=== PATIENT | male | born 1935 | race Caucasian/White ===

== ENCOUNTER → 2017-03-02 | Outpatient (CLI) | payer MEDICARE, OTHER ==
[2017-03-02 12:23] LABS: Basophils # (auto) 0 uL; Basophils % (auto) 0.6 % (0.0-2.0); CONDITION Y; Eosinophils # (auto) 0.1 uL; Eosinophils % (auto) 3.3 % (0.0-7.0); Hematocrit 40.8 % (41.0-53.0); Hemoglobin 13.7 g/dL (13.5-17.5); Lymphocytes # (auto) 0.6 uL; Mean Corpuscular Hemoglobin 32.8 pg (28.0-32.0); Mean Corpuscular Hgb Conc. 33.5 g/dL (32.0-36.0); Mean Corpuscular Volume 97.8 fL (80.0-100.0); Mean Platelet Volume 8.3 fL (7.4-10.4); Monocytes # (auto) 0.5 uL; Monocytes % (auto) 12.4 % (0.0-12.0); Neutrophils # (auto) 2.7 uL; Neutrophils % (auto) 67.7 % (37.0-80.0); Platelet Count (auto) 391 10^3/uL (140-450); Red Cell Distribution Width 13.5 % (11.6-16.0); White Blood Cell 4.1 10^3/uL (4.4-10.8)
[2017-03-02 12:25] LABS: Urine Bilirubin Negative (Negative); Urine Blood Negative /uL (Negative); Urine Color Yellow (Yellow); Urine Glucose Normal (Normal); Urine Ketone Negative (Negative); Urine Nitrite Negative (Negative); Urine Urobilinogen Normal (Negative)
[2017-03-02 13:09] LABS: BUN/Creatinine Ratio 20.3; Bilirubin, Direct 0.2 mg/dL (0-0.2); Bilirubin, Total 0.8 mg/dL (0.2-1.0); Calcium 9.8 mg/dL (8.5-10.1); Potassium 4.5 mmol/L (3.5-5.1); Total Protein 7.3 g/dL (6.4-8.2)
[2017-03-03 08:06] LABS: Prostate Specific Antigen 5.4 ng/mL (0.0-4.0)
[2017-03-03 09:08] LABS: PSA Free 0.93 ng/mL
== END | disposition home or self-care (01) ==
LOC: Rad HDHVI 08:44
PROVIDERS: ATTEND Internal Medicine Cardiovascular Disease
DX: I11.0 Hypertensive heart disease with heart failure (principal); I50.9 Heart failure, unspecified; E78.00 Pure hypercholesterolemia, unspecified; K74.1 Hepatic sclerosis; E11.9 Type 2 diabetes mellitus without complications; R97.20 Elevated prostate specific antigen [PSA]; R53.81 Other malaise; E03.9 Hypothyroidism, unspecified; D64.9 Anemia, unspecified; E55.9 Vitamin D deficiency, unspecified; N39.0 Urinary tract infection, site not specified
CPT/HCPCS: 36415; 71250; 80048; 80061; 80076; 81003; 82306; 83036; 84153; 84154; 84403; 84443; 85025

== ENCOUNTER → 2017-05-18 | Outpatient (CLI) | payer OTHER ==
[~2017-05-18] VITALS: Ht 167.6 cm; Wt 75.7 kg
[~2017-05-18] MED LIST: ADENOSINE 64 MG in GIVE UN-DILUTED 0 ML IV ONE; ADENOSINE 90 MG/30 ML INJ IV ONE
== END | disposition home or self-care (01) ==
LOC: Rad HDHVI 14:01
PROVIDERS: ATTEND Internal Medicine Cardiovascular Disease
DX: I11.0 Hypertensive heart disease with heart failure (principal); I50.42 Chronic combined systolic (congestive) and diastolic (congestive) heart failure; E78.00 Pure hypercholesterolemia, unspecified
CPT/HCPCS: 78452; 93005; 96374; 96375; A9500; J0153

== ENCOUNTER 2017-06-12 11:51 | Emergency (ER) | payer OTHER ==
[~2017-06-12] VITALS: Ht 170.2 cm; Wt 72.6 kg
[2017-06-12 12:31] VITALS: BP 139/67
[2017-06-12] MEDS ORDERED: TETANUS-DIPTH-ACEL PERTUSSIS 0.5ML SYRG IM ONE ×2 (13:23→13:30)
== END 2017-06-12 13:37 | disposition home or self-care (01) ==
LOC: ER 11:51
DX: S51.812A Laceration without foreign body of left forearm, initial encounter (principal); Z88.6 Allergy status to analgesic agent; Z88.1 Allergy status to other antibiotic agents; Z88.8 Allergy status to other drugs, medicaments and biological substances; E78.5 Hyperlipidemia, unspecified; I10 Essential (primary) hypertension; W22.8XXA Striking against or struck by other objects, initial encounter; Y93.89 Activity, other specified; Y92.89 Other specified places as the place of occurrence of the external cause; Y99.8 Other external cause status
CPT/HCPCS: 90471; 90715

== ENCOUNTER 2017-07-14 13:06 | Emergency (ER) | payer OTHER ==
[~2017-07-14] VITALS: Ht 170.2 cm; Wt 77.1 kg
[2017-07-14 13:27] VITALS: BP 175/73
== END 2017-07-14 15:29 | disposition home or self-care (01) ==
LOC: ER 13:06
DX: S59.912A Unspecified injury of left forearm, initial encounter (principal); I10 Essential (primary) hypertension; E78.5 Hyperlipidemia, unspecified; Z88.0 Allergy status to penicillin; Z88.1 Allergy status to other antibiotic agents; Z88.6 Allergy status to analgesic agent; Z88.8 Allergy status to other drugs, medicaments and biological substances; Z91.018 Allergy to other foods; X58.XXXA Exposure to other specified factors, initial encounter; Y93.89 Activity, other specified; Y92.89 Other specified places as the place of occurrence of the external cause; Y99.8 Other external cause status

== ENCOUNTER 2017-07-31 15:28 | Emergency (ER) | payer OTHER ==
[~2017-07-31] VITALS: Ht 170.2 cm; Wt 79.8 kg
[2017-07-31 16:47] VITALS: BP 123/95
[2017-07-31] MEDS ORDERED: NEOMYCIN-BACITRACIN-POLYM UNITDOSE PKG TOP OINT TOP ONE (17:17)
== END 2017-07-31 17:46 | disposition home or self-care (01) ==
LOC: ER 15:40
DX: S50.811A Abrasion of right forearm, initial encounter (principal); E78.6 Lipoprotein deficiency; I10 Essential (primary) hypertension; Z88.0 Allergy status to penicillin; Z88.1 Allergy status to other antibiotic agents; Z88.6 Allergy status to analgesic agent; Z91.013 Allergy to seafood; W19.XXXA Unspecified fall, initial encounter; Y93.89 Activity, other specified; Y99.8 Other external cause status; Y92.89 Other specified places as the place of occurrence of the external cause

== ENCOUNTER → 2017-08-19 | Outpatient (CLI) | payer OTHER ==
[~2017-08-19] MED LIST changes: -ADENOSINE 64 MG in GIVE UN-DILUTED 0 ML IV ONE; -ADENOSINE 90 MG/30 ML INJ IV ONE; +ALPR0.5T PO; +ATOR20TA PO; +ESCI10TA53 PO; +FENO160T8 PO; +GUAISYP5 PO; +LEVO50TA7 PO; +LEVOPOW43 XX; +LISI10TA6 PO; +MAGN400T5 PO; +OME20T PO; +TAMS0.4C36 PO
[2017-08-19 13:23] LABS: Basophils # (auto) 0 uL; Basophils % (auto) 0.9 % (0.0-2.0); Eosinophils # (auto) 0.1 uL; Eosinophils % (auto) 2.5 % (0.0-7.0); Hematocrit 42.8 % (41.0-53.0); Hemoglobin 14.4 g/dL (13.5-17.5); Lymphocytes # (auto) 0.8 uL; Lymphocytes % (auto) 21.2 % (10.0-50.0); Mean Corpuscular Hemoglobin 33.9 pg (28.0-32.0); Mean Corpuscular Hgb Conc. 33.6 g/dL (32.0-36.0); Mean Corpuscular Volume 100.8 fL (80.0-100.0); Monocytes # (auto) 0.5 uL; Monocytes % (auto) 12.7 % (0.0-12.0); Neutrophils # (auto) 2.3 uL; Neutrophils % (auto) 62.7 % (37.0-80.0); Nucleated Red Blood Cells % 0.4 %; Platelet Count (auto) 373 10^3/uL (140-450); Red Blood Cells 4.25 10^6/uL (4.5-5.90); Red Cell Distribution Width 13.1 % (11.8-14.3); White Blood Cell 3.6 10^3/uL (4.4-10.8)
[2017-08-19 13:58] LABS: BUN/Creatinine Ratio 13.3; Bilirubin, Direct 0.4 mg/dL (0-0.2); Bilirubin, Total 0.8 mg/dL (0.2-1.0); Calcium 9.8 mg/dL (8.5-10.1); Potassium 4.1 mmol/L (3.5-5.1); Total Protein 7.8 g/dL (6.4-8.2)
== END | disposition home or self-care (01) ==
LOC: LAB 08:04
PROVIDERS: ATTEND Internal Medicine Cardiovascular Disease
DX: E78.00 Pure hypercholesterolemia, unspecified (principal); D64.9 Anemia, unspecified; I10 Essential (primary) hypertension; E03.9 Hypothyroidism, unspecified; E55.9 Vitamin D deficiency, unspecified; R53.81 Other malaise; R97.20 Elevated prostate specific antigen [PSA]; K74.1 Hepatic sclerosis; E11.9 Type 2 diabetes mellitus without complications
CPT/HCPCS: 36415; 80048; 80061; 80076; 82306; 83036; 84153; 84154; 84403; 84443; 85025

== ENCOUNTER → 2017-10-18 | Outpatient (CLI) | payer OTHER ==
[2017-10-18 11:54] LABS: Folate (Folic Acid) 14.82 ng/mL (5.38-24)
== END | disposition home or self-care (01) ==
LOC: LAB 10:13
PROVIDERS: ATTEND Psychiatry & Neurology Neurology
DX: G30.1 Alzheimer's disease with late onset (principal)
CPT/HCPCS: 82607; 82746

== ENCOUNTER 2017-11-12 20:31 | Inpatient (IN) | payer OTHER ==
[~2017-11-12] VITALS: Ht 167.6 cm; Wt 87.8 kg
[2017-11-12] MEDS ORDERED: SODIUM CHLORIDE 0.9% 1,000 ML IV ONE (21:48)
[2017-11-12 22:31] LABS: Basophils # (auto) 0.1 uL; Basophils % (auto) 0.9 % (0.0-2.0); Eosinophils # (auto) 0 uL; Eosinophils % (auto) 0.2 % (0.0-7.0); Hematocrit 37.3 % (41.0-53.0); Hemoglobin 12.8 g/dL (13.5-17.5); Lymphocytes # (auto) 0.1 uL; Mean Corpuscular Hemoglobin 33.7 pg (28.0-32.0); Mean Corpuscular Hgb Conc. 34.3 g/dL (32.0-36.0); Mean Corpuscular Volume 98.2 fL (80.0-100.0); Monocytes # (auto) 0.9 uL; Monocytes % (auto) 13.8 % (0.0-12.0); Neutrophils # (auto) 5.4 uL; Neutrophils % (auto) 83.1 % (37.0-80.0); Nucleated Red Blood Cells % 0.1 %; Platelet Count (auto) 276 10^3/uL (140-450); Red Cell Distribution Width 13.2 % (11.8-14.3); White Blood Cell 6.5 10^3/uL (4.4-10.8)
[2017-11-12 22:49] LABS: Albumin 2.8 g/dL (3.4-5.0); BUN/Creatinine Ratio 21.4; Bilirubin, Total 4.5 mg/dL (0.2-1.0); Calcium 9.1 mg/dL (8.5-10.1); Potassium 3.4 mmol/L (3.5-5.1); Total Protein 6.6 g/dL (6.4-8.2)
[2017-11-12 23:54] LABS: Urine Bacteria NONE SEEN /hpf (None Seen); Urine Blood Negative /uL (Negative); Urine Hyaline Cast FEW /lpf (0 - 2); Urine Mucus FEW (None Seen); Urine Specific Gravity 1.026 (1.001-1.035); Urine WBC 2 /hpf (0 - 3)
[2017-11-13] MEDS ORDERED: SODIUM CHLORIDE 0.9% 1,000 ML IV ONE (00:17)
[2017-11-13] MEDS ORDERED: ONDANSETRON HCL 4 MG/2 ML VIAL IV PRN (07:15)
[2017-11-13] MEDS ORDERED: HYDROcodone-ACET 5/325MG TAB PO PRN (07:15)
[2017-11-13] MEDS ORDERED: LOPERAMIDE HCL 2 MG CAP PO ONE (07:15)
[2017-11-13] MEDS ORDERED: ACETAMINOPHEN 325 MG TAB PO PRN (07:15)
[2017-11-13] MEDS ORDERED: TEMAZEPAM 15 MG CAP PO PRN (07:15)
[2017-11-13] MEDS ORDERED: ALBUTEROL SULF 2.5 MG/0.5ML(0.5%) NEB SOLN NEB PRN (07:30)
[2017-11-13 09:36] VITALS: BP 135/97
[2017-11-13 10:05] VITALS: BP 135/97
[2017-11-13] MEDS ORDERED: ESCI10TA53 PO (10:11)
[2017-11-13] MEDS ORDERED: GUAISYP5 PO ×2 (10:11)
[2017-11-13] MEDS ORDERED: ATOR20TA PO (10:11)
[2017-11-13] MEDS ORDERED: FENO160T8 PO (10:11)
[2017-11-13] MEDS ORDERED: LEVOPOW43 XX (10:11)
[2017-11-13] MEDS ORDERED: MAGN400T5 PO (10:11)
[2017-11-13] MEDS ORDERED: LISI10TA6 PO (10:11)
[2017-11-13] MEDS ORDERED: ALPR0.5T PO (10:11)
[2017-11-13] MEDS ORDERED: OME20T PO (10:11)
[2017-11-13] MEDS ORDERED: TAMS0.4C36 PO (10:11)
[2017-11-13] MEDS: PANTOPRAZOLE 40 MG/10 ML VIAL IV SCH ×2 (11:00→22:17)
[2017-11-13] MEDS: SODIUM CHLORIDE 0.9% 1,000 ML IV SCH ×2 (11:00→20:26)
[2017-11-13] MEDS: metroNIDAZOLE 500MG/100ML 100 ML IV SCH ×2 (11:00→17:04)
[2017-11-13] MEDS: ENOXAPARIN SOD 40 MG/0.4 ML SYRINGE SC SCH (11:01)
[2017-11-13 12:21] VITALS: BP 124/77
[2017-11-13 17:14] VITALS: BP 137/67
[2017-11-13] MEDS: LOPERAMIDE HCL 2 MG CAP PO PRN (19:09)
[2017-11-13 21:48] VITALS: BP 142/89
[2017-11-14] MEDS: SODIUM CHLORIDE 0.9% 1,000 ML IV SCH ×3 (01:00→22:11)
[2017-11-14] MEDS: metroNIDAZOLE 500MG/100ML 100 ML IV SCH ×3 (01:01→17:05)
[2017-11-14 04:51] VITALS: BP 133/71
[2017-11-14 05:41] LABS: Basophils # (auto) 0 uL; Eosinophils # (auto) 0.1 uL; Hemoglobin 11.4 g/dL (13.5-17.5); Monocytes # (auto) 0.8 uL; Neutrophils # (auto) 3.5 uL
[2017-11-14 05:43] LABS: Basophils % (auto) 0.4 % (0.0-2.0); Eosinophils % (auto) 2.1 % (0.0-7.0); Hematocrit 33.4 % (41.0-53.0); Lymphocytes # (auto) 0.7 uL; Lymphocytes % (auto) 13.4 % (10.0-50.0); Mean Corpuscular Hemoglobin 33.7 pg (28.0-32.0); Mean Corpuscular Hgb Conc. 34.1 g/dL (32.0-36.0); Mean Corpuscular Volume 98.8 fL (80.0-100.0); Neutrophils % (auto) 69.1 % (37.0-80.0); Platelet Count (auto) 292 10^3/uL (140-450); Red Blood Cells 3.38 10^6/uL (4.5-5.90); Red Cell Distribution Width 13.7 % (11.8-14.3)
[2017-11-14 06:13] LABS: Albumin 2.3 g/dL (3.4-5.0); BUN/Creatinine Ratio 15.7; Bilirubin, Total 1.1 mg/dL (0.2-1.0); Calcium 8.6 mg/dL (8.5-10.1); Potassium 3.8 mmol/L (3.5-5.1); Total Protein 5.9 g/dL (6.4-8.2)
[2017-11-14 08:00] VITALS: BP 145/81
[2017-11-14 09:00] VITALS: BP 145/81
[2017-11-14] MEDS: ENOXAPARIN SOD 40 MG/0.4 ML SYRINGE SC SCH (09:59)
[2017-11-14] MEDS: PANTOPRAZOLE 40 MG/10 ML VIAL IV SCH ×2 (09:59→22:10)
[2017-11-14 13:00] VITALS: BP 141/85
[2017-11-14] MEDS ORDERED: MAGNESIUM OXIDE 400 MG TAB PO SCH (13:00)
[2017-11-14] MEDS: LISINOPRIL 10 MG TAB PO SCH (13:30)
[2017-11-14] MEDS ORDERED: LEVO50TA7 PO (15:22)
[2017-11-14 17:00] VITALS: BP 150/85
[2017-11-14] MEDS: LOPERAMIDE HCL 2 MG CAP PO PRN (17:05)
[2017-11-14] MEDS: ALPRAZolam 0.5 MG TAB PO SCH (18:21)
[2017-11-14] MEDS: TAMSULOSIN HYDROCHLORIDE 0.4 MG CAP PO SCH (18:22)
[2017-11-14 22:00] VITALS: BP 138/71
[2017-11-14] MEDS: ATORVASTATIN 20 MG TAB PO SCH (22:11)
[2017-11-14] MEDS: NYSTATIN TOPICAL POWDER 15GM TOP SCH (22:11)
[2017-11-15] MEDS: metroNIDAZOLE 500MG/100ML 100 ML IV SCH ×2 (00:43→09:02)
[2017-11-15 04:46] VITALS: BP 136/75
[2017-11-15] MEDS: LEVOTHYROXINE SODIUM 50 MCG TAB PO SCH (05:31)
[2017-11-15 09:00] VITALS: BP 151/88
[2017-11-15] MEDS: CITALOPRAM HYDROBR 20 MG TAB PO SCH (09:25)
[2017-11-15] MEDS: PANTOPRAZOLE 40 MG/10 ML VIAL IV SCH (09:25)
[2017-11-15] MEDS: ENOXAPARIN SOD 40 MG/0.4 ML SYRINGE SC SCH (09:26)
[2017-11-15] MEDS: ALPRAZolam 0.5 MG TAB PO SCH (09:26)
[2017-11-15] MEDS: FENOFIBRATE 160 MG PO SCH (09:35)
[2017-11-15] MEDS: LISINOPRIL 10 MG TAB PO SCH (09:37)
[2017-11-15] MEDS: NYSTATIN TOPICAL POWDER 15GM TOP SCH ×2 (09:37→22:13)
[2017-11-15] MEDS: SODIUM CHLORIDE 0.9% 1,000 ML IV SCH (12:39)
[2017-11-15 12:51] VITALS: BP 146/84
[2017-11-15] MEDS: CHOLESTYRAMINE 4 GM POWDER PO SCH ×2 (15:00→22:12)
[2017-11-15 17:00] VITALS: BP 152/74
[2017-11-15] MEDS: TAMSULOSIN HYDROCHLORIDE 0.4 MG CAP PO SCH (17:27)
[2017-11-15 22:00] VITALS: BP 143/75
[2017-11-15] MEDS: ATORVASTATIN 20 MG TAB PO SCH (22:12)
[2017-11-15] MEDS: LOPERAMIDE HCL 2 MG CAP PO PRN (22:14)
[2017-11-16] MEDS: SODIUM CHLORIDE 0.9% 1,000 ML IV SCH (02:03)
[2017-11-16] MEDS: LOPERAMIDE HCL 2 MG CAP PO PRN ×2 (02:45→05:46)
[2017-11-16 05:00] VITALS: BP 137/78
[2017-11-16] MEDS: LEVOTHYROXINE SODIUM 50 MCG TAB PO SCH (05:45)
[2017-11-16 09:00] VITALS: BP 141/78
[2017-11-16 09:40] VITALS: BP 152/74
[2017-11-16] MEDS: FENOFIBRATE 160 MG PO SCH (10:00)
[2017-11-16] MEDS: LISINOPRIL 10 MG TAB PO SCH (10:00)
[2017-11-16] MEDS: CHOLESTYRAMINE 4 GM POWDER PO SCH (10:31)
[2017-11-16] MEDS: ALPRAZolam 0.5 MG TAB PO SCH (10:31)
[2017-11-16] MEDS: ENOXAPARIN SOD 40 MG/0.4 ML SYRINGE SC SCH (10:31)
[2017-11-16] MEDS: CITALOPRAM HYDROBR 20 MG TAB PO SCH (10:31)
== END 2017-11-16 14:00 | disposition home or self-care (01) | DRG 391 ==
LOC: EDBD 20:31 → ER 20:37 → OVERFLOW 20:38 → WEST WING 11-13 09:15
PROVIDERS: ADMIT Nurse Practitioner; ATTEND Family Medicine
DX: K52.9 Noninfective gastroenteritis and colitis, unspecified (principal); E43 Unspecified severe protein-calorie malnutrition; J84.10 Pulmonary fibrosis, unspecified; K57.90 Diverticulosis of intestine, part unspecified, without perforation or abscess without bleeding; E78.00 Pure hypercholesterolemia, unspecified; E78.5 Hyperlipidemia, unspecified; I10 Essential (primary) hypertension; K40.90 Unilateral inguinal hernia, without obstruction or gangrene, not specified as recurrent; M46.06 Spinal enthesopathy, lumbar region; Z77.090 Contact with and (suspected) exposure to asbestos; Z86.73 Personal history of transient ischemic attack (TIA), and cerebral infarction without residual deficits; G89.29 Other chronic pain; M54.2 Cervicalgia; Z88.1 Allergy status to other antibiotic agents; Z88.6 Allergy status to analgesic agent; Z88.0 Allergy status to penicillin; Z88.8 Allergy status to other drugs, medicaments and biological substances; Z79.899 Other long term (current) drug therapy; Z68.31 Body mass index [BMI] 31.0-31.9, adult
CPT/HCPCS: 36415; 71045; 74176; 74181; 80053; 81001; 83690; 83880; 84484; 85025; 87045; 87493; 87899; 96360; C9113; J3490

== ENCOUNTER → 2018-02-08 | Outpatient (CLI) | payer OTHER ==
[~2018-02-08] MED LIST changes: -LEVOPOW43 XX
[2018-02-08 12:18] LABS: BUN/Creatinine Ratio 23.3; Calcium 9.6 mg/dL (8.5-10.1)
[2018-02-08 12:21] LABS: Potassium 5.6 mmol/L (3.5-5.1)
== END | disposition home or self-care (01) ==
LOC: LAB 10:05
PROVIDERS: ATTEND Internal Medicine Cardiovascular Disease
DX: I10 Essential (primary) hypertension (principal)
CPT/HCPCS: 36415; 80048

== ENCOUNTER → 2018-04-13 | Outpatient (CLI) | payer OTHER ==
[2018-04-13 16:19] LABS: BUN/Creatinine Ratio 18.7; Calcium 8.9 mg/dL (8.5-10.1); Potassium 4.6 mmol/L (3.5-5.1)
== END | disposition home or self-care (01) ==
LOC: Rad HDHVI 10:57
PROVIDERS: ATTEND Internal Medicine Cardiovascular Disease
DX: I65.23 Occlusion and stenosis of bilateral carotid arteries (principal); I10 Essential (primary) hypertension; R42 Dizziness and giddiness; E78.5 Hyperlipidemia, unspecified
CPT/HCPCS: 36415; 80048; 93880

== ENCOUNTER → 2018-07-12 | Outpatient (CLI) | payer OTHER ==
[2018-07-12 16:06] LABS: Basophils # (auto) 0 uL; Basophils % (auto) 0.5 % (0.0-2.0); Eosinophils # (auto) 0.1 uL; Eosinophils % (auto) 1.8 % (0.0-7.0); Hematocrit 36.2 % (41.0-53.0); Hemoglobin 12.1 g/dL (13.5-17.5); Lymphocytes # (auto) 0.5 uL; Lymphocytes % (auto) 10.9 % (10.0-50.0); Mean Corpuscular Hemoglobin 33.1 pg (28.0-32.0); Mean Corpuscular Hgb Conc. 33.4 g/dL (32.0-36.0); Mean Corpuscular Volume 99.1 fL (80.0-100.0); Monocytes # (auto) 0.5 uL; Monocytes % (auto) 10.4 % (0.0-12.0); Neutrophils # (auto) 3.7 uL; Neutrophils % (auto) 76.4 % (37.0-80.0); Nucleated Red Blood Cells % 0.1 %; Platelet Count (auto) 332 10^3/uL (140-450); Red Blood Cells 3.65 10^6/uL (4.5-5.90); Red Cell Distribution Width 13.6 % (11.8-14.3); White Blood Cell 4.9 10^3/uL (4.4-10.8)
[2018-07-12 16:14] LABS: Albumin 3.7 g/dL (3.4-5.0); Calcium 9.6 mg/dL (8.5-10.1); Potassium 4.7 mmol/L (3.5-5.1)
[2018-07-12 16:19] LABS: BUN/Creatinine Ratio 14.4; Bilirubin, Total 0.6 mg/dL (0.2-1.0); Total Protein 7.2 g/dL (6.4-8.2)
== END | disposition home or self-care (01) ==
LOC: LAB 10:59
PROVIDERS: ATTEND Internal Medicine
DX: D64.9 Anemia, unspecified (principal); I10 Essential (primary) hypertension
CPT/HCPCS: 36415; 80053; 85025

== ENCOUNTER → 2018-07-13 | Outpatient (CLI) | payer OTHER | END | disposition home or self-care (01) | LOC: Rad HDHVI 11:39 | PROVIDERS: ATTEND Internal Medicine | DX: I10 Essential (primary) hypertension (principal); R00.2 Palpitations | CPT/HCPCS: 93880 ==

== ENCOUNTER → 2019-10-04 | Outpatient (CLI) | payer MEDICARE, OTHER ==
[~2019-10-04] MED LIST changes: -GUAISYP5 PO; +MAGN400T40 PO; -MAGN400T5 PO; +[UNRECOGNIZED DRUG - CODE] PO
[2019-10-04 11:55] LABS: Basophils # (auto) 0 uL; Basophils % (auto) 0.6 % (0.0-2.0); Eosinophils # (auto) 0.1 uL; Eosinophils % (auto) 1.4 % (0.0-7.0); Hematocrit 36.6 % (41.0-53.0); Hemoglobin 12.4 g/dL (13.5-17.5); Lymphocytes # (auto) 0.6 uL; Lymphocytes % (auto) 15.9 % (10.0-50.0); Mean Corpuscular Hgb Conc. 33.9 g/dL (32.0-36.0); Mean Corpuscular Volume 103.2 fL (80.0-100.0); Monocytes # (auto) 0.4 uL; Monocytes % (auto) 11.3 % (0.0-12.0); Neutrophils # (auto) 2.6 uL; Neutrophils % (auto) 70.8 % (37.0-80.0); Platelet Count (auto) 291 10^3/uL (140-450); Red Blood Cells 3.55 10^6/uL (4.5-5.90); Red Cell Distribution Width 14.8 % (11.8-14.3); Urine Blood Negative /uL (Negative); Urine Specific Gravity 1.018 (1.001-1.035); White Blood Cell 3.7 10^3/uL (4.4-10.8)
[2019-10-04 12:12] LABS: Potassium 4.5 mmol/L (3.5-5.1)
[2019-10-04 12:18] LABS: Free T4 (Free Thyroxine) 1.13 ng/dL (0.89-1.76); Prostate Specific Antigen 3.58 ng/mL (0.0-4.0)
[2019-10-04 12:25] LABS: Albumin 3.6 g/dL (3.4-5.0); BUN/Creatinine Ratio 18.4; Bilirubin, Total 0.5 mg/dL (0.2-1.0); Calcium 9.5 mg/dL (8.5-10.1); Total Protein 6.8 g/dL (6.4-8.2)
== END | disposition home or self-care (01) ==
LOC: LAB 09:41
PROVIDERS: ATTEND Internal Medicine
DX: E03.9 Hypothyroidism, unspecified (principal); K90.9 Intestinal malabsorption, unspecified; C61 Malignant neoplasm of prostate; E29.1 Testicular hypofunction; N39.0 Urinary tract infection, site not specified; D51.9 Vitamin B12 deficiency anemia, unspecified; Z79.899 Other long term (current) drug therapy
CPT/HCPCS: 36415; 80053; 80061; 81003; 82306; 82607; 83036; 84153; 84403; 84439; 84443; 85025

== ENCOUNTER 2022-09-08 05:29 | Inpatient (IN) | payer MEDICARE, OTHER ==
[~2022-09-08] VITALS: Ht 170.2 cm; Wt 63.0 kg
[2022-09-08] VITALS (11 sets, daily range): BP systolic 90–134; BP diastolic 28–62
[~2022-09-08 05:29] MED LIST changes: +ESCI-28 PO; -ESCI10TA53 PO; +GUAISYP12 PO; +LISI-716 PO; -LISI10TA6 PO; -[UNRECOGNIZED DRUG - CODE] PO
[2022-09-08 06:44] LABS: Basophils # (auto) 0 10 ^3/uL (0-0.2); Eosinophils # (auto) 0 10 ^3/uL (0-0.8); Eosinophils % (auto) 0.2 % (0.0-7.0); Hemoglobin 7.9 g/dL (13.5-17.5); Lymphocytes # (auto) 0.4 10 ^3/uL (0.4-5.4); Mean Corpuscular Volume 95.4 fL (80.0-100.0); White Blood Cell 8.1 10^3/uL (4.4-10.8)
[2022-09-08 06:46] LABS: Basophils % (auto) 0.3 % (0.0-2.0); Hematocrit 22.9 % (41.0-53.0); Lymphocytes % (auto) 5.3 % (10.0-50.0); Mean Corpuscular Hemoglobin 32.8 pg (28.0-32.0); Mean Corpuscular Hgb Conc. 34.4 g/dL (32.0-36.0); Monocytes # (auto) 0.7 10 ^3/uL (0-1.3); Monocytes % (auto) 8.2 % (0.0-12.0); Neutrophils # (auto) 6.9 10 ^3/uL (1.6-8.6); Red Cell Distribution Width 19.3 % (11.8-14.3)
[2022-09-08 06:51] LABS: INR 1.16 (0.9-1.15); Partial Thromboplastin Time 21.1 sec (24.6-33.4)
[2022-09-08 07:15] LABS: Potassium 4.5 mmol/L (3.5-5.1)
[2022-09-08 07:19] LABS: Albumin 2.6 g/dL (3.4-5.0); BUN/Creatinine Ratio 36.1; Magnesium 1.9 mg/dL (1.6-2.6)
[2022-09-08 07:22] LABS: Bilirubin, Total 0.3 mg/dL (0.2-1.0); Total Protein 4.8 g/dL (6.4-8.2)
[2022-09-08] MEDS ORDERED: SODIUM CHLORIDE 0.9% 1,000 ML IV ONE (07:30)
[2022-09-08] MEDS: NOREPINEPHRINE 8 MG/250ML KIT 250 ML IV SCH (08:28)
[2022-09-08] MEDS ORDERED: CLOP75TA70 PO (11:06)
[2022-09-08] MEDS ORDERED: ATOR40TA52 PO (11:06)
[2022-09-08] MEDS ORDERED: PANTOPRAZOLE 40mg/50ML NS AE 50 ML IV ONE (11:15)
[2022-09-08] MEDS ORDERED: PANTOPRAZOLE 80 MG in SODIUM CHL 0.9% 100 ML IV ONE (11:15)
[2022-09-08 12:19] LABS: Hematocrit 18.2 % (41.0-53.0)
[2022-09-08 12:26] LABS: Hemoglobin 6.1 g/dL (13.5-17.5)
[2022-09-08] MEDS ORDERED: cefTRIAXone 1GM/50ML D5W 50 ML IV ONE (12:45)
[2022-09-08] MEDS: metroNIDAZOLE 500MG/100ML 100 ML IV SCH ×2 (15:00→21:13)
[2022-09-08] MEDS: SUCRALFATE 1 GM/10 ML ORAL SUSP PO SCH ×2 (17:00→20:31)
[2022-09-08] MEDS ORDERED: HALOPERIDOL LACTATE 5 MG/ML INJ VIAL ONE (17:19)
[2022-09-08] MEDS ORDERED: HALOPERIDOL LACTATE 5 MG/ML INJ VIAL IM ONE (17:30)
[2022-09-08 20:25] LABS: Basophils # (auto) 0 10 ^3/uL (0-0.2); Eosinophils # (auto) 0 10 ^3/uL (0-0.8); Lymphocytes # (auto) 0.7 10 ^3/uL (0.4-5.4); Neutrophils # (auto) 7.9 10 ^3/uL (1.6-8.6)
[2022-09-08 20:26] LABS: Basophils % (auto) 0.3 % (0.0-2.0); Hematocrit 20.8 % (41.0-53.0); Lymphocytes % (auto) 7.1 % (10.0-50.0); Mean Corpuscular Hemoglobin 31.7 pg (28.0-32.0); Mean Corpuscular Hgb Conc. 33.4 g/dL (32.0-36.0); Mean Corpuscular Volume 94.8 fL (80.0-100.0); Monocytes % (auto) 10.3 % (0.0-12.0); Neutrophils % (auto) 82.3 % (37.0-80.0); Nucleated Red Blood Cells % 0.1 %; Red Blood Cells 2.19 10^6/uL (4.5-5.90); Red Cell Distribution Width 16.2 % (11.8-14.3); White Blood Cell 9.6 10^3/uL (4.4-10.8)
[2022-09-08 21:12] LABS: Hemoglobin 6.9 g/dL (13.5-17.5)
[2022-09-08 21:22] LABS: Urine Bacteria NONE SEEN /hpf (None Seen); Urine Blood 2+ /uL (Negative); Urine Hyaline Cast MOD /lpf (0 - 2); Urine Specific Gravity 1.019 (1.001-1.035); Urine WBC 7 /hpf (0 - 3)
[2022-09-08] MEDS ORDERED: LORazepam 2MG/ML-1ML VIAL IV ONE (21:45)
[2022-09-09] VITALS (78 sets, daily range): BP systolic 85–141; BP diastolic 38–82
[2022-09-09] MEDS: NOREPINEPHRINE 8 MG/250ML KIT 250 ML IV SCH ×3 (02:25→22:10)
[2022-09-09 02:59] LABS: Basophils # (auto) 0 10 ^3/uL (0-0.2); Eosinophils # (auto) 0 10 ^3/uL (0-0.8); Hematocrit 23.1 % (41.0-53.0); Lymphocytes # (auto) 0.5 10 ^3/uL (0.4-5.4)
[2022-09-09 03:00] LABS: Basophils % (auto) 0.1 % (0.0-2.0); Hemoglobin 8.2 g/dL (13.5-17.5); Mean Corpuscular Hemoglobin 33.2 pg (28.0-32.0); Mean Corpuscular Hgb Conc. 35.6 g/dL (32.0-36.0); Mean Corpuscular Volume 93.3 fL (80.0-100.0); Monocytes % (auto) 11.5 % (0.0-12.0); Neutrophils # (auto) 7.6 10 ^3/uL (1.6-8.6); Neutrophils % (auto) 83.4 % (37.0-80.0); Red Blood Cells 2.47 10^6/uL (4.5-5.90); White Blood Cell 9.1 10^3/uL (4.4-10.8)
[2022-09-09 03:18] LABS: Albumin 2.2 g/dL (3.4-5.0); BUN/Creatinine Ratio 51.3; Calcium 8.1 mg/dL (8.5-10.1); Potassium 4.4 mmol/L (3.5-5.1)
[2022-09-09 03:20] LABS: Bilirubin, Total 0.5 mg/dL (0.2-1.0); Total Protein 4.3 g/dL (6.4-8.2)
[2022-09-09] MEDS: SUCRALFATE 1 GM/10 ML ORAL SUSP PO SCH ×4 (05:00→21:23)
[2022-09-09] MEDS: metroNIDAZOLE 500MG/100ML 100 ML IV SCH ×3 (05:56→22:10)
[2022-09-09 08:39] LABS: Hematocrit 21.7 % (41.0-53.0); Hemoglobin 7.5 g/dL (13.5-17.5)
[2022-09-09] MEDS ORDERED: cefTRIAXone 1GM/50ML D5W 50 ML IV SCH (09:00)
[2022-09-09] MEDS ORDERED: SODIUM CHLORIDE LOCK 10 ML ONE (14:20)
[2022-09-09] MEDS ORDERED: diphenhdrAMINE HCL 50 MG/1 ML VL ONE (14:20)
[2022-09-09] MEDS ORDERED: MIDAZOLAM HCL 2MG/2ML 2ml VIAL (1mg/ml) ONE (14:20)
[2022-09-09] MEDS ORDERED: fentaNYL CITRATE 100 MCG/2 ML VL ONE (14:20)
[2022-09-09] MEDS ORDERED: EPINEPHrine HCL 1 MG/1 ML AMP ONE (14:21)
[2022-09-09] MEDS: MIDAZOLAM HCL 2MG/2ML 2ml VIAL (1mg/ml) ONE ×2 (14:40→14:45)
[2022-09-09 14:45] LABS: Hematocrit 20.9 % (41.0-53.0); Hemoglobin 7.3 g/dL (13.5-17.5)
[2022-09-09] MEDS ORDERED: PANTOPRAZOLE 40 MG/10 ML VIAL INJ IV ONE (15:15)
[2022-09-09] MEDS: PANTOPRAZOLE 40mg/50ML NS AE 50 ML IV SCH ×2 (16:04→20:43)
[2022-09-09 20:42] LABS: Hematocrit 18.7 % (41.0-53.0)
[2022-09-09 20:47] LABS: Hemoglobin 6.6 g/dL (13.5-17.5)
[2022-09-10] VITALS (93 sets, daily range): BP systolic 78–120; BP diastolic 30–62
[2022-09-10] MEDS: PANTOPRAZOLE 40mg/50ML NS AE 50 ML IV SCH ×5 (01:39→21:21)
[2022-09-10] MEDS: metroNIDAZOLE 500MG/100ML 100 ML IV SCH ×3 (06:00→21:59)
[2022-09-10] MEDS: SUCRALFATE 1 GM/10 ML ORAL SUSP PO SCH ×4 (07:00→22:00)
[2022-09-10 08:54] LABS: Basophils # (auto) 0 10 ^3/uL (0-0.2); Basophils % (auto) 0.2 % (0.0-2.0); Eosinophils # (auto) 0.1 10 ^3/uL (0-0.8); Eosinophils % (auto) 1.2 % (0.0-7.0); Hematocrit 28.5 % (41.0-53.0); Lymphocytes # (auto) 0.2 10 ^3/uL (0.4-5.4); Lymphocytes % (auto) 2.6 % (10.0-50.0); Mean Corpuscular Hemoglobin 31.9 pg (28.0-32.0); Mean Corpuscular Volume 91.1 fL (80.0-100.0); Monocytes # (auto) 0.6 10 ^3/uL (0-1.3); Monocytes % (auto) 9.7 % (0.0-12.0); Neutrophils # (auto) 5.7 10 ^3/uL (1.6-8.6); Neutrophils % (auto) 86.3 % (37.0-80.0); Nucleated Red Blood Cells % 0.4 %; Red Blood Cells 3.13 10^6/uL (4.5-5.90); Red Cell Distribution Width 15.9 % (11.8-14.3); White Blood Cell 6.6 10^3/uL (4.4-10.8)
[2022-09-10 09:05] LABS: Albumin 2.4 g/dL (3.4-5.0); Calcium 7.9 mg/dL (8.5-10.1)
[2022-09-10 09:10] LABS: BUN/Creatinine Ratio 42.9; Bilirubin, Total 0.7 mg/dL (0.2-1.0)
[2022-09-10] MEDS: NOREPINEPHRINE 8 MG/250ML KIT 250 ML IV SCH (15:48)
[2022-09-11] VITALS (88 sets, daily range): BP systolic 81–117; BP diastolic 24–60
[2022-09-11] MEDS: metroNIDAZOLE 500MG/100ML 100 ML IV SCH ×3 (06:11→22:12)
[2022-09-11] MEDS: SUCRALFATE 1 GM/10 ML ORAL SUSP PO SCH ×4 (06:11→22:00)
[2022-09-11] MEDS: PANTOPRAZOLE 40mg/50ML NS AE 50 ML IV SCH ×5 (08:30→20:25)
[2022-09-11 08:48] LABS: Hematocrit 30.3 % (41.0-53.0); Hemoglobin 10.6 g/dL (13.5-17.5); Mean Corpuscular Hemoglobin 32.3 pg (28.0-32.0); Mean Corpuscular Hgb Conc. 34.8 g/dL (32.0-36.0); Mean Corpuscular Volume 92.7 fL (80.0-100.0); Red Blood Cells 3.27 10^6/uL (4.5-5.90); Red Cell Distribution Width 16.9 % (11.8-14.3)
[2022-09-11 08:54] LABS: Basophils % (manual) 0 (0.0-2.0); Blast Cells 0; Metamyelocytes % 0; Myelocytes % 0; Promyelocytes % 0; Reactive Lymphocytes 0
[2022-09-11 08:57] LABS: Calcium 7.9 mg/dL (8.5-10.1); Potassium 3.8 mmol/L (3.5-5.1)
[2022-09-11 09:48] LABS: Band Neutrophils % (manual) 4; Eosinophils % (manual) 2 (0-7); Lymphocytes % (manual) 3 (10.0-50.0); Monocytes % (manual) 6 (0-12)
[2022-09-11] MEDS ORDERED: ACETAMINOPHEN 325 MG TAB PO PRN (13:30)
[2022-09-11] MEDS: ACETAMINOPHEN 325 MG TAB PO PRN ×2 (13:53→21:23)
[2022-09-11] MEDS: SODIUM CHLORIDE 0.9% 1,000 ML IV SCH ×2 (13:58→21:24)
[2022-09-11] MEDS: NOREPINEPHRINE 8 MG/250ML KIT 250 ML IV SCH (22:12)
[2022-09-12] VITALS (77 sets, daily range): BP systolic 89–141; BP diastolic 32–74
[2022-09-12] MEDS: PANTOPRAZOLE 40mg/50ML NS AE 50 ML IV SCH ×2 (02:43→07:09)
[2022-09-12 04:16] LABS: Basophils # (auto) 0 10 ^3/uL (0-0.2); Basophils % (auto) 0.5 % (0.0-2.0); Eosinophils # (auto) 0.1 10 ^3/uL (0-0.8); Eosinophils % (auto) 2.9 % (0.0-7.0); Hematocrit 29.4 % (41.0-53.0); Hemoglobin 10.1 g/dL (13.5-17.5); Lymphocytes # (auto) 0.3 10 ^3/uL (0.4-5.4); Lymphocytes % (auto) 5.6 % (10.0-50.0); Mean Corpuscular Hgb Conc. 34.4 g/dL (32.0-36.0); Mean Corpuscular Volume 93.2 fL (80.0-100.0); Monocytes # (auto) 0.6 10 ^3/uL (0-1.3); Neutrophils # (auto) 3.8 10 ^3/uL (1.6-8.6); Nucleated Red Blood Cells % 0.1 %; Red Blood Cells 3.15 10^6/uL (4.5-5.90); Red Cell Distribution Width 17.3 % (11.8-14.3); White Blood Cell 4.8 10^3/uL (4.4-10.8)
[2022-09-12 04:25] LABS: BUN/Creatinine Ratio 30.3; Calcium 7.6 mg/dL (8.5-10.1); Potassium 3.2 mmol/L (3.5-5.1)
[2022-09-12] MEDS: POTASSIUM CHL 20MEQ/100ML 100 ML IV SCH ×2 (05:12→07:00)
[2022-09-12] MEDS: metroNIDAZOLE 500MG/100ML 100 ML IV SCH ×3 (05:43→22:05)
[2022-09-12] MEDS: SUCRALFATE 1 GM/10 ML ORAL SUSP PO SCH ×4 (06:53→22:09)
[2022-09-12] MEDS: SODIUM CHLORIDE 0.9% 1,000 ML IV SCH ×2 (08:43→22:07)
[2022-09-12] MEDS: ACETAMINOPHEN 325 MG TAB PO PRN ×2 (10:59→16:34)
[2022-09-12 13:04] LABS: Magnesium 1.5 mg/dL (1.6-2.6); Potassium 3.4 mmol/L (3.5-5.1)
[2022-09-12] MEDS: PANTOPRAZOLE 40 MG/10 ML VIAL INJ IV SCH (22:09)
[2022-09-13] VITALS (13 sets, daily range): BP systolic 115–146; BP diastolic 38–71
[2022-09-13] MEDS: metroNIDAZOLE 500MG/100ML 100 ML IV SCH ×3 (05:43→14:53)
[2022-09-13] MEDS: SODIUM CHLORIDE 0.9% 1,000 ML IV SCH ×3 (05:57→14:52)
[2022-09-13] MEDS: SUCRALFATE 1 GM/10 ML ORAL SUSP PO SCH ×4 (07:00→22:07)
[2022-09-13] MEDS: NOREPINEPHRINE 8 MG/250ML KIT 250 ML IV SCH (07:51)
[2022-09-13] MEDS: PANTOPRAZOLE 40 MG/10 ML VIAL INJ IV SCH ×2 (09:59→22:07)
[2022-09-14 05:00] VITALS: BP 120/91
[2022-09-14] MEDS: metroNIDAZOLE 500MG/100ML 100 ML IV SCH ×3 (05:45→23:00)
[2022-09-14 06:31] LABS: Basophils # (auto) 0 10 ^3/uL (0-0.2); Basophils % (auto) 1.1 % (0.0-2.0); Eosinophils # (auto) 0.1 10 ^3/uL (0-0.8); Eosinophils % (auto) 2.4 % (0.0-7.0); Hematocrit 33.4 % (41.0-53.0); Hemoglobin 11.4 g/dL (13.5-17.5); Lymphocytes # (auto) 0.6 10 ^3/uL (0.4-5.4); Lymphocytes % (auto) 15.5 % (10.0-50.0); Mean Corpuscular Hemoglobin 32.1 pg (28.0-32.0); Mean Corpuscular Hgb Conc. 34.2 g/dL (32.0-36.0); Mean Corpuscular Volume 93.9 fL (80.0-100.0); Monocytes # (auto) 0.5 10 ^3/uL (0-1.3); Monocytes % (auto) 12.3 % (0.0-12.0); Neutrophils # (auto) 2.5 10 ^3/uL (1.6-8.6); Neutrophils % (auto) 68.7 % (37.0-80.0); Nucleated Red Blood Cells % 0.2 %; Red Blood Cells 3.56 10^6/uL (4.5-5.90); Red Cell Distribution Width 18.6 % (11.8-14.3); White Blood Cell 3.7 10^3/uL (4.4-10.8)
[2022-09-14] MEDS: SUCRALFATE 1 GM/10 ML ORAL SUSP PO SCH ×4 (06:40→22:00)
[2022-09-14 06:47] LABS: Potassium 3.5 mmol/L (3.5-5.1)
[2022-09-14 06:53] LABS: BUN/Creatinine Ratio 14.3; Calcium 8.1 mg/dL (8.5-10.1); Magnesium 1.5 mg/dL (1.6-2.6)
[2022-09-14 09:08] VITALS: BP 121/57
[2022-09-14] MEDS: PANTOPRAZOLE 40 MG/10 ML VIAL INJ IV SCH ×2 (10:00→22:00)
[2022-09-14] MEDS: SODIUM CHLORIDE 0.9% 1,000 ML IV SCH ×2 (12:01→23:07)
[2022-09-14 12:52] VITALS: BP 107/68
[2022-09-14 16:32] VITALS: BP 141/69
[2022-09-14] MEDS: ACETAMINOPHEN 325 MG TAB PO PRN (18:32)
[2022-09-14 22:00] VITALS: BP_SYST 114; BP_SYST 125; BP_DIAS 68; BP_DIAS 77
[2022-09-15 05:00] VITALS: BP 112/48
[2022-09-15] MEDS: metroNIDAZOLE 500MG/100ML 100 ML IV SCH ×2 (06:05→14:08)
[2022-09-15] MEDS: SUCRALFATE 1 GM/10 ML ORAL SUSP PO SCH ×3 (06:37→17:21)
[2022-09-15] MEDS: SODIUM CHLORIDE 0.9% 1,000 ML IV SCH ×2 (07:30→17:30)
[2022-09-15 08:57] VITALS: BP 90/55
[2022-09-15] MEDS: PANTOPRAZOLE 40 MG/10 ML VIAL INJ IV SCH (10:12)
[2022-09-15 13:05] VITALS: BP 129/83
[2022-09-15] MEDS ORDERED: PANT40TA2 PO (13:10)
[2022-09-15] MEDS ORDERED: SUCR1SUS10 PO (13:10)
[2022-09-15] MEDS: ACETAMINOPHEN 325 MG TAB PO PRN (15:29)
[2022-09-15 15:48] VITALS: BP 124/83
[2022-09-15 16:11] LABS: Basophils # (auto) 0 10 ^3/uL (0-0.2); Basophils % (auto) 0.8 % (0.0-2.0); Eosinophils # (auto) 0.1 10 ^3/uL (0-0.8); Eosinophils % (auto) 1.3 % (0.0-7.0); Hematocrit 35.8 % (41.0-53.0); Hemoglobin 11.9 g/dL (13.5-17.5); Lymphocytes # (auto) 0.6 10 ^3/uL (0.4-5.4); Lymphocytes % (auto) 12.8 % (10.0-50.0); Mean Corpuscular Hemoglobin 31.6 pg (28.0-32.0); Mean Corpuscular Hgb Conc. 33.3 g/dL (32.0-36.0); Mean Corpuscular Volume 94.8 fL (80.0-100.0); Monocytes # (auto) 0.5 10 ^3/uL (0-1.3); Monocytes % (auto) 10.4 % (0.0-12.0); Neutrophils # (auto) 3.3 10 ^3/uL (1.6-8.6); Neutrophils % (auto) 74.7 % (37.0-80.0); Nucleated Red Blood Cells % 0.1 %; Red Blood Cells 3.78 10^6/uL (4.5-5.90); Red Cell Distribution Width 19.9 % (11.8-14.3); White Blood Cell 4.5 10^3/uL (4.4-10.8)
[2022-09-15 16:54] VITALS: BP 116/62
== END 2022-09-15 17:50 | DRG 377 ==
LOC: EDBD 05:29 → ER 05:29 → TELE 11:41 → ICU WEST 20:45 → TELE-WESTW 09-13 16:41
PROVIDERS: ADMIT Registered Nurse; ATTEND Internal Medicine
PROC: 05HN33Z Insertion of Infusion Device into Left Internal Jugular Vein, Percutaneous Approach (ICD-10-PCS; 2022-09-08)
PROC: 4A143B0 Monitoring of Venous Pressure, Central, Percutaneous Approach (ICD-10-PCS; 2022-09-08)
PROC: 30233N1 Transfusion of Nonautologous Red Blood Cells into Peripheral Vein, Percutaneous Approach (ICD-10-PCS; 2022-09-08)
PROC: 06HM33Z Insertion of Infusion Device into Right Femoral Vein, Percutaneous Approach (ICD-10-PCS; 2022-09-08)
PROC: 0DB68ZZ Excision of Stomach, Via Natural or Artificial Opening Endoscopic (ICD-10-PCS; 2022-09-09)
PROC: 3E0G8GC Introduction of Other Therapeutic Substance into Upper GI, Via Natural or Artificial Opening Endoscopic (ICD-10-PCS; 2022-09-09)
PROC: 0DB98ZZ Excision of Duodenum, Via Natural or Artificial Opening Endoscopic (ICD-10-PCS; principal; 2022-09-09 14:15)
DX: K26.4 Chronic or unspecified duodenal ulcer with hemorrhage (principal); N17.0 Acute kidney failure with tubular necrosis; D62 Acute posthemorrhagic anemia; D68.59 Other primary thrombophilia; Z68.1 Body mass index [BMI] 19.9 or less, adult; E87.0 Hyperosmolality and hypernatremia; E87.20 Acidosis, unspecified; E44.0 Moderate protein-calorie malnutrition; K22.11 Ulcer of esophagus with bleeding; I95.9 Hypotension, unspecified; Z66 Do not resuscitate; G30.9 Alzheimer's disease, unspecified; F02.80 Dementia in other diseases classified elsewhere, unspecified severity, without behavioral disturbance, psychotic disturbance, mood disturbance, and anxiety; E03.9 Hypothyroidism, unspecified; E78.5 Hyperlipidemia, unspecified; I48.91 Unspecified atrial fibrillation; I10 Essential (primary) hypertension; K44.9 Diaphragmatic hernia without obstruction or gangrene; M54.50 Low back pain, unspecified; Z51.5 Encounter for palliative care; F32.A Depression, unspecified; Z20.822 Contact with and (suspected) exposure to COVID-19; E87.6 Hypokalemia; Z88.8 Allergy status to other drugs, medicaments and biological substances; Z88.6 Allergy status to analgesic agent; Z88.1 Allergy status to other antibiotic agents; Z88.0 Allergy status to penicillin; Z91.013 Allergy to seafood; Z86.73 Personal history of transient ischemic attack (TIA), and cerebral infarction without residual deficits
CPT/HCPCS: 36415; 36556; 43239; 70450; 71045; 80048; 80053; 81001; 82270; 83735; 83880; 84132; 84484; 85007; 85014; 85018; 85025; 85027; 85610; 85730; 86850; 86900; 86901; 86920; 87081; 87426; 92610; 93005; 96361; 96365; 96366; 96372; 99291; C9113; G0378; J0171; J2250; J3480; J3490